=== PATIENT | male | born 2000 | race Hispanic/Latino ===

== ENCOUNTER 2024-01-11 13:22 | Outpatient (CLI) | payer BC | END 2024-01-11 13:23 | disposition home or self-care (01) | LOC: SCSMRI 13:22 | PROVIDERS: ATTEND Student in an Organized Health Care Education/Training Program | DX: M23.92 Unspecified internal derangement of left knee (principal); M25.462 Effusion, left knee; R93.7 Abnormal findings on diagnostic imaging of other parts of musculoskeletal system ==

== ENCOUNTER 2024-02-12 23:58 | Emergency (ER) | payer BC ==
[2024-02-13] MEDS ORDERED: Diazepam 10 MG/2 ML SYRINGE ONE (00:34)
== END 2024-02-13 02:57 | disposition home or self-care (01) ==
LOC: ERS 23:58
DX: R00.2 Palpitations (principal); F15.90 Other stimulant use, unspecified, uncomplicated
CPT/HCPCS: 71045; 93005; 96372; J3360